=== PATIENT | female | born 1970 | race Two or more races ===

== ENCOUNTER 2022-08-09 23:49 | Emergency (ER) | payer OTHER ==
[~2022-08-09] VITALS: Ht 152.4 cm; Wt 56.7 kg
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
[2022-08-10] MEDS ORDERED: IBUPROFEN 400 MG TABLET PO ONE (00:30)
--- NOTE | 2022-08-10 00:33 | NUR ---
Discussed discharge plan with patient, verbalized agreement.
[2022-08-10 00:34] VITALS: BP 132/76
== END 2022-08-10 00:34 | disposition home or self-care (01) ==
LOC: ER 08-10
DX: R51.9 Headache, unspecified (principal); M79.18 Myalgia, other site; I10 Essential (primary) hypertension; V49.9XXA Car occupant (driver) (passenger) injured in unspecified traffic accident, initial encounter; Y93.89 Activity, other specified; Y92.89 Other specified places as the place of occurrence of the external cause; Y99.8 Other external cause status